=== PATIENT | male | born 1950 | race Caucasian/White ===

== ENCOUNTER 2018-05-30 05:19 | Inpatient (IN) ==
[2018-05-30] MEDS ORDERED: Chlorhexidine 4% Topical 120 APPLIC/120 ML Bottle TOPICAL SCH (05:45)
[2018-05-30] MEDS ORDERED: Chlorhexidine Gluconate 2% 1 Pack (2 Cloths) TOPICAL ONE (05:49)
[2018-05-30] MEDS ORDERED: Metoprolol Tartrate 25 MG Tablet PO ONE (05:49)
[2018-05-30] MEDS ORDERED: ceFAZolin 2 GM Premix Inj 2 GM/50 ML PIGGYBACK IV.SIG SCH (06:00)
[2018-05-30] MEDS ORDERED: Sodium Chlor 0.9% Inj 500 ML IV.SIG SCH (06:00)
[2018-05-30] MEDS ORDERED: Bupivacaine Liposomal PF 1.3% Inj 20 ML Vial ONE (06:28)
[2018-05-30] MEDS ORDERED: Lidocaine PF 1% Inj 5 ML Vial ONE (06:29)
[2018-05-30] MEDS ORDERED: Bupivacaine/Dextrose 0.75% Inj 2 ML Ampul ONE (06:36)
[2018-05-30] MEDS ORDERED: guaiFENesin 600 MG ER Tablet PO PRN (06:42)
[2018-05-30] MEDS ORDERED: CHLORPHENIRAMINE MALEATE 4 MG PO PRN (06:42)
[2018-05-30] MEDS ORDERED: Furosemide 40 MG Tablet PO PRN (06:42)
[2018-05-30] MEDS ORDERED: Propofol Inj 500 MG/50 ML Vial ONE (06:53)
[2018-05-30] MEDS ORDERED: Phenylephrine/NS 1000 MCG/10ML Syringe IV.PUSH ONE (06:53)
[2018-05-30] MEDS ORDERED: Sodium Chlor 0.9% Inj 80 ML, Bupivacaine Liposo PF 1.3% Inj 20 ML P-ARTICULR SCH ×2 (07:00)
[2018-05-30] MEDS ORDERED: SODIUM CHLOR 0.9% IV.SIG SCH ×2 (07:00→10:00)
[2018-05-30] MEDS ORDERED: TRANEXAMIC ACID IV.SIG SCH ×2 (07:00→10:00)
[2018-05-30] MEDS ORDERED: Non-Formulary Drug (Omega 3-Dha-Epa-Fish Oil [Fish Oil] 1,000 MG) PO SCH (09:00)
[2018-05-30] MEDS ORDERED: Acetaminophen 325 MG Tablet PO PRN (09:31)
[2018-05-30] MEDS ORDERED: Morphine Inj 4 MG/ML Vial IV.PUSH PRN (09:31)
[2018-05-30] MEDS ORDERED: Aluminum/Magnesium/Simethacone Susp 30 ML UDC PO PRN (09:31)
[2018-05-30] MEDS ORDERED: Tranexamic Acid Inj 0 MG in Sodium Chlor 0.9% Inj 100 ML IV.SIG ONE (09:31)
[2018-05-30] MEDS ORDERED: Bisacodyl 10 MG Supp RECTAL PRN (09:31)
[2018-05-30] MEDS ORDERED: Post-op Orders (for Pharmacy) OTHER STA (09:31)
--- NOTE | 2018-05-30 09:46 | P.OP ---
- Preoperative Diagnosis (1) Primary osteoarthritis of left knee - Postoperative Diagnosis (1) Primary osteoarthritis of left knee Date of procedure: 05/30/18 Procedure: Left total knee arthroplasty using [employer] Triathlon prosthesis (uncemented). Anesthesia: regional (Adductor canal block), local (Exparel), spinal Surgeon: Moisés Gibbs MD Neuro Urologist: ABDULLAHI Velazquez Estimated blood loss (mL): 100 Tourniquet time (min): 0 Pathology: none sent Operation and Findings: Indications and Findings: This 67-year-old man has had long-standing arthritis in his left knee for the past several years nonresponsive to conservative measures including anti-inflammatory agents, analgesics, activity modification, intra-articular corticosteroid injections and occasional ambulatory aids. His ambulation tolerance is limited to a great this degree. He has difficulty ascending and descending stairs and standing from a seated position. He has some rest pain. Physical findings showed some genu valgum with lateral laxity, lateral and patellofemoral crepitation, an antalgic gait and lateral and patellofemoral tenderness. Radiographic findings showed loss of articular cartilage to [id number] in the lateral compartment with osteophytes in the patellofemoral, lateral and medial compartments. There was lateral compartment subchondral sclerosis. Operative findings: There is severe lateral compartment arthritis with lateral compartment subchondral sclerosis in the femur and the tibia, erosion of the posterior aspect of the tibia, osteophytes throughout the knee and chondral irregularity in the patellofemoral and medial compartments as well.. The prosthesis used was a [place] Triathlon prosthesis. The femur was a size 5, cruciate retaining, uncemented. The tibial baseplate was a size 6 Tritanium with a cruciate retaining, X3 polyethylene, 11 mm spacer. The patella was a size 35 mm asymmetric, Tritanium backed. The patient was brought to the clean-air operating suite after administration of a regional anesthetic by adductor canal block. A spinal anesthetic was administered. The position was supine with a small bolster under the hip on the operative side. A pneumatic tourniquet was applied to the upper thigh. The lower extremity was prepped with alcohol, Hibiclens and ChloraPrep and draped in the usual manner with the knee draped free. An appropriate timeout procedure was carried out. An incision was made from about 3 fingerbreadths above the superior medial pole of patella down the tibial tubercle on the medial side. The incision was deepened through the subcutaneous tissue to the retinacular structures which were exposed medially and laterally. A medial retinacular incision was made from the superior medial pole of patella down the tibial tubercle and up into the quadriceps tendon, splitting it longitudinally in the medial one third. The patella was reflected. The infrapatellar fat pad was debulked. The anterior cruciate ligament was excised. Medial and lateral meniscectomies were initiated. Fenestrations were made in the distal femur and proximal tibia for intramedullary referencing guides. The distal femoral cutting guide and jig were assembled for a 5, 8 mm cut. When this was fit into position,the cutting block was stabilized with pins. The jig was removed. The distal femoral cut was completed with the oscillating saw. The sizing guide was positioned in place along Whitesides line and the epicondylar axis and stabilized with pins. The femoral size was determined as noted above. The 4-in-1 cutting block was positioned in place. Anterior and posterior cuts were made followed by posterior and anterior chamfer cuts taking care to prevent injury to ligamentous structures. Osteophytes were trimmed from the distal femur. A bone plug was placed into the fenestration of the distal femur. The proximal tibia was exposed. The medial and lateral meniscectomies were completed. The proximal tibial cutting guide was positioned in place and stabilized with a pin for rotation. The depth of cut was verified with a stylus off the high side. The cutting block was stabilized with pins. The jig was removed. The depth of cut was verified and adjusted appropriately with the use of the spacer block. The proximal tibial cut was made with the oscillating saw taking care to prevent injury to neurovascular and ligamentous structures. Proximal tibial bone was removed. Local anesthetic was administered with Exparel in the posterior capsule. The tibial baseplate trial was positioned in place. After verifying the appropriate size, the base plate trial was positioned in place along with its spacer. The femoral component was impacted into place. The alignment was checked. The tibial baseplate was pinned in place on the tibia. Attention was directed to the patella. The patella drill guide was positioned in place for the appropriate sized patella. Patellar drilling was then carried out. The trial patella was positioned in place. An initial range of motion was checked. A lateral retinacular release was carried out with electrocautery. The knee was taken through a range of motion which was easily 0 extension to 140 degrees. The patella trial was removed. The femoral drill holes were made. The femoral trials were removed. The tibial spacer was removed. A bone plug was placed into the proximal tibia. The tibial punch was impacted through the proximal tibial punch guide. This was all removed followed by placement of the tibial drill guide. The tibial drill holes were made. The guide was removed. The cut ends of bone were cleaned with pulse lavage. The tibial baseplate was impacted into place and seated appropriately. The spacer was inserted. The the femoral component was impacted into place and seated appropriately. The patella component was seated with the patellar vice and tightened appropriately. The knee was taken through a range of motion which was comparable to the previous range of motion with excellent stability in flexion and extension and appropriate patellofemoral tracking. The remainder of the Exparel was injected throughout the knee as a local anesthetic. Drains were brought out the superior lateral aspect of the suprapatellar pouch. Wound closure commenced using 0 Vicryl interrupted [id number] sutures for the capsular and fascial structures, 2-0 Vicryl interrupted simple sutures with buried knots for the subcutaneous tissues and 4-0 Monocryl, continuous subcuticular closure for the skin. The wound was dressed with Dermabond Prineo followed by a dry sterile dressing. Sterile soft roll with a cooling pad and Luis bandage from the base of the toes to mid thigh were applied. Patient was transferred from the operating room to the recovery room in satisfactory condition having tolerated procedure well. Counts were correct. Specimens: None. Estimated blood loss: 100 mL
--- NOTE | 2018-05-30 09:49 | P.DCO ---
- Physical Therapy Physical Therapy: Gait training Knee: Total knee, Protocol: Left, Gait training, Full weight bearing Left Lower Extremity Weight Bearing: Weight bearing as tolerated Left Lower Extremity Range of Motion: Active ROM (Active, active assisted, passive range of motion. The range of motion goal is 0 degrees extension to 135 degrees of flexion.) - Nursing Nursing: Dressing changes Dressing changes: Daily dressing change, Coverderm/Primapore Additional instructions: Do not remove Dermabond Prineo (the tape that is directly on the wound). Leave the Optifoam dressing in place for 7 days. After this, daily dressing changes will be done taking care to avoid injuring or removing the Dermabond Prineo. - Certification Need for Home Health services: I have seen patient Philippe Baeza on 05/30/18. My clinical findings support the need for the requested home health care services because: Need for Home Health Services: Limited ability to care for self, High risk of falls Homebound Certification: I certify that my clinical findings support that this patient is homebound because: Homebound Certification: Post-op weakness, Unsteady gait/balance, Unsafe to leave home unassisted
[2018-05-30] MEDS ORDERED: Ketorolac Inj 30 MG/ML (IVP) Vial ONE (10:21)
[2018-05-30] MEDS: Ketorolac Inj 30 MG/ML (IVP) Vial IV.PUSH SCH ×4 (10:22→21:30)
--- NOTE | 2018-05-30 11:16 | XR ---
EXAM DATE: 05/30/2018 11:06 AM EST AGE/SEX: 67 years / Male INDICATIONS: Post-op left knee. CLINICAL DATA: This is the patient's initial encounter. Patient reports that signs and symptoms have been present for 1 day and indicates a pain score of Nonresponsive. MEDICAL/SURGICAL HISTORY: Non-responsive. Non-responsive. [place] [facility] [place]1 [place] 2 [place] 03/03/2011. . FINDINGS: AP and lateral views of the knee following arthroplasty reveals a prosthesis in anatomic alignment. F racture is not appreciated. Surgical drain is evident . CONCLUSION: Status post total knee arthroplasty. Shaun Candelaria MD FACR Electronically signed by: Shaun Candelaria MD 05/30/2018 11:15 AM EST
[2018-05-30] MEDS: ceFAZolin 1 GM Premix Inj 1 GM/50 ML IV.SIG SCH ×2 (14:00→21:27)
[2018-05-30] MEDS ORDERED: Dextrose 50% in Water 50 ML Vial IV.PUSH PRN (15:53)
--- NOTE | 2018-05-30 15:59 | P.CON ---
History of Present Illness Service: [facility] Consult date: 05/30/18 Requesting Physician: Moisés Gibbs Reason for Consult: Medical Evaluation and Treatment Primary Care Provider: Gracie Ray DO Chief Complaint: osteoarthritis, left knee pain History of Present Illness: 67-year-old male with history of CHF s/p AICD, HTN, DM, neuropathy, COPD, nephrolithiasis, MELINA not on CPAP, and severe osteoarthritis that has failed multiple attempts at conservative management, now admitted to the hospital for left total knee arthroplasty by Dr. Gibbs. Hospitalist consulted for postop medical management. The patient is seen sitting upright in bedside chair post surgery. He states he is feeling great and his pain is well controlled especially after receiving dilaudid. He complains of a scratchy throat after intubation, however tolerating oral intake. He denies any chest pain, shortness of breath, or abdominal complaints. He has no other medical complaints at this time. His procedure analyst is Dr. Ortiz. Review of Systems All other systems reviewed negative except as stated in HPI REPLACED BY [facility] - History History Provided By: Patient - Medical History Medical History: Medical History (Last Reviewed 05/30/18 @ 15:40 by Farzana Benton) Arthritis CHF (congestive heart failure) COPD (chronic obstructive pulmonary disease) Diabetes Esophageal hiatal hernia Heart failure History of anesthesia reaction Hx of fracture of wrist Hx of renal calculi Hypertension Neuropathy Pacemaker Presence of orthopedic joint implant Sleep apnea Urinary retention Uvular swelling - Surgical History Surgical History: Surgical History (Last Reviewed 05/30/18 @ 15:41 by Farzana Benton) AICD (automatic cardioverter/defibrillator) present History of orchiectomy History of total left hip arthroplasty History of total right knee replacement (TKR) Hx of cholecystectomy Hx of right inguinal hernia repair Hx of shoulder surgery - Family History Family History: Family History (Last Updated 05/30/18 @ 15:41 by Farzana Benton) Mother Heart disease Father Heart disease - Social History I have reviewed the patient's Social History: Yes - Tobacco History Second Hand Smoke Exposure: Yes Tobacco Use In Past 30 Days: No Smoking Status: Never smoker - Alcohol History How Often Do You Have a Drink Containing Alcohol: Monthly or less - Substance Use History Substance History: No History of Abuse - Travel History Recent Travel in the [place] Within the Last 8 Weeks: No Recent Travel Out of the Country Within the Last 8 Weeks: No Medications and Allergies Active Medications: Active Medications Acetaminophen (Tylenol) 650 mg PO Q6H PRN PRN Reason: Pain Less Than 3 On Scale Al Hydrox/Mg Hydrox/Simethicone (Mag-Al Plus Susp Liq) 30 ml PO Q6H PRN PRN Reason: INDIGESTION Al Hydroxide/Mg Hydroxide (Milk Of Magnesia Liq) 30 ml PO BID PRN PRN Reason: Mild Constipation Albuterol (Ventolin Hfa Inh) 2 puff INH Q6H PRN PRN Reason: Shortness Of Breath Aspirin (Aspirin) 325 mg PO DAILY [facility] Bethanechol Chloride (Urecholine) 25 mg PO DAILY [facility] Bisacodyl (Dulcolax Supp) 10 mg RECTAL DAILY PRN PRN Reason: SEVERE CONSITIPATION Carvedilol (Coreg) 50 mg PO BID [facility] Chlorhexidine Gluconate (Hibiclens 4% Topical) 1 applicatio TOPICAL ONCE [facility] Stop: 06/03/18 05:44 Diphenhydramine HCl (Benadryl) 25 mg PO Q6H PRN PRN Reason: ITCHING Folic Acid (Folic Acid) 1 mg PO DAILY [facility] Glipizide (Glucotrol) 5 mg PO BID [facility] Guaifenesin (Mucinex Er) 600 mg PO Q12H PRN PRN Reason: CONGESTION Hydromorphone HCl (Dilaudid) 1 mg PO Q4H PRN PRN Reason: PAIN SCALE 6 TO 10 Last Admin: 05/30/18 13:51 Dose: 1 mg Cefazolin Sodium/Dextrose (Ancef 2 Gm Premix Inj) 2 gm in 50 mls @ 100 mls/hr IV.SIG GIMP TACKER [facility] Stop: 06/03/18 05:59 Last Infusion: 05/30/18 08:02 Dose: Infused Lactated Ringer's (Lr 1000 Ml Inj) 1,000 mls @ 30 mls/hr IV.SIG .Q24H [facility] Stop: 05/31/18 05:59 Last Admin: 05/30/18 06:22 Dose: 30 mls/hr Sodium Chloride (Ns Inj) 500 mls @ 30 mls/hr IV.SIG .Q10H [facility] Last Admin: 05/30/18 06:48 Dose: Not Given Lactated Ringer's (Lr 1000 Ml Inj) 1,000 mls @ 80 mls/hr IV.CONT .[id number] [facility] Last Admin: 05/30/18 10:14 Dose: 80 mls/hr Cefazolin Sodium/Dextrose (Ancef 1 Gm Premix Inj) 1 gm in 50 mls @ 100 mls/hr IV.SIG Q6H [facility] Stop: 05/31/18 02:29 Insulin Detemir (Levemir Inj) 22 unit SQ DAILY [facility] Ketorolac Tromethamine (Toradol Inj) 15 mg IV.PUSH Q6H [facility] Stop: 06/01/18 03:46 Last Admin: 05/30/18 10:31 Dose: 15 mg Lactulose (Lactulose Liq) 30 ml PO DAILY PRN PRN Reason: SEVERE CONSITIPATION Losartan Potassium (Cozaar) 25 mg PO BID [facility] Melatonin (Melatonin) 5 mg PO HS PRN PRN Reason: INSOMNIA Miscellaneous Information (Misc Nursing Information) 0 each OTHER UNSCH PRN PRN Reason: SEE LABEL COMMENTS Stop: 05/31/18 10:01 Montelukast Sodium (Singulair) 10 mg PO HS [facility] Morphine Sulfate (Morphine Inj) 2 mg IV.PUSH Q3H PRN PRN Reason: BREAKTHROUGH PAIN Ondansetron HCl (Zofran Odt) 4 mg PO Q6H PRN PRN Reason: NAUSEA OR VOMITING Pantoprazole Sodium (Protonix) 40 mg PO DAILY [facility] Pravastatin Sodium (Pravachol) 80 mg PO HS [facility] Senna/Docusate Sodium (Aurelia-Colace) 1 tab PO BID [facility] Sennosides (Senokot) 17.2 mg PO BID PRN PRN Reason: Moderate Constipation Sodium Chloride (Ns Flush) 2 ml IV.FLUSH BID [facility] Sodium Chloride (Ns Flush) 2 ml IV.FLUSH PRN PRN PRN Reason: FLUSH AFTER USING IV ACCESS Spironolactone (Aldactone) 25 mg PO DAILY [facility] Tamsulosin HCl (Flomax) 0.8 mg PO DAILY [facility] Tramadol HCl (Ultram) 50 mg PO Q6H PRN PRN Reason: PAIN SCALE 4 TO 6 MODERATE Vitamin E (Vitamin E) 400 unit PO DAILY [facility] Zolpidem Tartrate (Ambien) 5 mg PO HS PRN PRN Reason: INSOMNIA Allergies Allergy/AdvReac Type Severity Reaction Status Date / Time codeine Allergy Severe Rash Verified 05/30/18 05:54 erythromycin base Allergy Severe VOMITING Verified 05/30/18 05:54 oxycodone Allergy Severe Itching Verified 05/30/18 05:54 pentazocine Allergy Severe Itching Verified 05/30/18 05:54 Home Medications Medication Instructions Recorded Confirmed Type albuterol sulfate 2 puff INHALATION Q4-6H PRN 05/19/18 05/30/18 History bethanechol chloride 25 mg PO DAILY 05/19/18 05/30/18 History carvedilol 50 mg PO BID 05/19/18 05/30/18 History chlorpheniramine maleate 4 mg PO DAILY PRN 05/19/18 05/30/18 History folic acid 1 mg PO DAILY 05/19/18 05/30/18 History furosemide 40 mg PO DAILY PRN 05/19/18 05/30/18 History glipizide 5 mg PO BID 05/19/18 05/30/18 History guaifenesin [Mucinex] 600 mg PO Q12H PRN 05/19/18 05/30/18 History insulin glargine [Lantus U-100 22 unit SUBCUT DAILY 05/19/18 05/30/18 History Insulin] losartan 25 mg PO BID 05/19/18 05/30/18 History melatonin 3 mg PO HS PRN 05/19/18 05/30/18 History montelukast 10 mg PO QPM 05/19/18 05/30/18 History omega 1-isa-kfa-fish oil [Fish Oil] 1,000 mg PO DAILY 05/19/18 05/30/18 History omeprazole 40 mg PO DAILY 05/19/18 05/30/18 History simvastatin 40 mg PO QPM 05/19/18 05/30/18 History spironolactone 25 mg PO DAILY 05/19/18 05/30/18 History tamsulosin [Flomax] 0.8 mg PO DAILY 05/19/18 05/30/18 History vitamin E 400 unit PO DAILY 05/19/18 05/30/18 History aspirin 325 mg PO DAILY 05/30/18 05/30/18 History Physical Exam Vital signs: Vital Signs 05/30/18 06:03 05/30/18 10:00 05/30/18 10:15 Temperature 98.8 F 97.6 F Pulse Rate 84 83 80 Respiratory Rate 18 20 20 Blood Pressure 189/98 H 133/77 138/77 Pulse Oximetry 96 96 96 05/30/18 10:30 05/30/18 10:48 05/30/18 12:00 Temperature 97.6 F 97.4 F L Pulse Rate 80 81 77 Respiratory Rate 20 20 18 Blood Pressure 141/75 H 139/80 142/77 H Pulse Oximetry 96 95 96 Intake & Output 05/29/18 05/30/18 05/30/18 18:59 06:59 18:59 Intake Total 2099. / 2099. Output Total 100 / 100 Balance 1999. / Weight 120.4 kg Intake: IV 162.04 / 162.04 Cyklokapron Inj 1,204 MG In NS 112.04 / 112.04 Inj 100 ML @ 200 mls/hr IV.SIG ONCE [facility] Rx#:[id number] Ancef 2 GM Premix Inj 2 gm In 50 / 50 50 ml @ 100 mls/hr IV.SIG GIMP TACKER [facility] Rx#:[id number] Anesthesia Amount 1937 Output: Estimated Blood Loss 100 / 100 Other: Weight On Admission 120.4 kg Narrative: GENERAL: Well-nourished, well-developed very pleasant male patient in [facility]. SKIN: Warm and dry. No rash. HEENT: Normocephalic. Atraumatic. Pupils equal and round. Mucous membranes pink and moist. NECK: Supple. Trachea midline. CARDIOVASCULAR: Regular rate and rhythm. No murmur appreciated. RESPIRATORY: No accessory muscle use. Clear to auscultation. Breath sounds equal bilaterally. GASTROINTESTINAL: Abdomen soft, non-tender, nondistended. Normoactive bowel sounds x4. MUSCULOSKELETAL: No obvious deformities. Extremities without clubbing, cyanosis , or edema. LLE with surgical dressing from foot to proximal thigh, CDI, with hemovac in place. NEUROLOGICAL: Awake and alert. No obvious cranial nerve deficits. Motor grossly within normal limits. Moving all extremities spontaneously. Normal speech. PSYCHIATRIC: Appropriate mood and affect; insight and judgment normal. Results - Labs Labs: Laboratory Results - last 24 hr 05/30/18 05/30/18 05/30/18 06:01 06:05 08:32 POC Glucose 123 H 120 H Blood Type O Positive Blood Type Recheck Required Antibody Screen Negative 05/30/18 05/30/18 10:43 12:00 POC Glucose 141 H 166 H Blood Type Blood Type Recheck Antibody Screen - Imaging Impressions Knee X-Ray 05/30/18 06:41 CONCLUSION: Status post total knee arthroplasty. Shaun Candelaria MD FACR Assessment and Plan - Plan 67-year-old male with history of CHF s/p AICD, HTN, DM, neuropathy, COPD, nephrolithiasis, MELINA not on CPAP, and severe osteoarthritis that has failed multiple attempts at conservative management, now admitted to the hospital for left total knee arthroplasty by Dr. Gibbs. Hospitalist consulted for postop medical management. Severe Osteoarthritis s/p Left Total Knee Arthroplasty: surgery done 05/[address] Gibbs. -continue management per ortho -pain control with tramadol prn, dilaudid po prn and IV morphine prn breakthrough pain -PT consulted -plan for discharge with [facility] on 06/01 -check CBC/BMP in am HTN/HLD/CHF: chronic, does not appear to be in fluid overload -continue patient's aspirin, coreg, lasix, losartan, spironolactone, and statin -monitor BP, adjust antihypertensives as needed DM with neuropathy: chronic -continue patient's glipizide, lantus 22u sq qd (converted to levemir)\ -monitor Accu-checks and cover with SSI COPD: chronic, does not appear to be in exacerbation -continue patient's albuterol inhaler prn All other chronic medical conditions stable, continue home medications as appropriate. DVT Prophylaxis: per ortho; on full strength aspirin daily
[2018-05-30] MEDS: Insulin NovoLOG Aspart Correctional Sugar Inj SQ SCH ×2 (18:00→21:29)
[2018-05-30] MEDS ORDERED: Zolpidem Tartrate 5 MG Tablet PO PRN (21:00)
[2018-05-30] MEDS ORDERED: Montelukast 10 MG Tablet PO SCH (21:00)
[2018-05-30] MEDS ORDERED: Melatonin 5 MG Tablet PO PRN (21:00)
[2018-05-30] MEDS: Senna/Docusate Sodium 8.6/50 MG Tablet PO SCH (21:28)
[2018-05-30] MEDS: glipiZIDE 5 MG Tablet PO SCH (21:28)
[2018-05-30] MEDS: Carvedilol 12.5 MG Tablet PO SCH (21:29)
[2018-05-31] MEDS: ceFAZolin 1 GM Premix Inj 1 GM/50 ML IV.SIG SCH (01:15)
[2018-05-31] MEDS: Ketorolac Inj 30 MG/ML (IVP) Vial IV.PUSH SCH ×2 (03:10→09:45)
[2018-05-31 05:35] LABS: Baso % (Auto) 0.2 % (0.0-2.0); Eos % (Auto) 0.1 % (0.0-4.0); Hematocrit 36.7 % (39.0-51.0); Hemoglobin 12.4 gm/dL (13.0-17.0); Lymph # (Auto) 1.4 th/mm3 (1.0-4.8); Lymph % (Auto) 14.2 % (9.0-44.0); Mean Corpuscular HGB Conc 33.7 % (32.0-36.0); Mean Corpuscular Hemoglobin 30.6 pg (27.0-34.0); Mean Corpuscular Volume 90.8 fL (80.0-100.0); Mean Platelet Volume 8.1 fL (7.0-11.0); Mono # (Auto) 0.8 th/mm3 (0.0-0.9); Mono % (Auto) 7.8 % (0.0-8.0); Neut # (Auto) 7.8 th/mm3 (1.8-7.7); Neut % (Auto) 77.7 % (16.0-70.0); Platelet Count 207 th/mm3 (150-450); Red Blood Count 4.04 mil/mm3 (4.50-5.90); Red Cell Distribution Width 14.7 % (11.6-17.2)
[2018-05-31 06:10] LABS: Calcium 8.1 mg/dL (8.5-10.1); Carbon Dioxide 24.2 meq/L (21.0-32.0); Potassium 3.8 meq/L (3.5-5.1)
--- NOTE | 2018-05-31 07:14 | P.PNOP ---
Subjective Interval history: Postop day #1 He is doing well today. Other than some minor popliteal pain, he has no pain. He does have some itching from tramadol. Physical therapy reports that the ambulation distance was 210 feet, then 12 feet to the bathroom. The range of motion was 0 degrees of extension to 78 degrees of flexion. Physical Exam Vital signs: Vital Signs 05/30/18 10:00 05/30/18 10:15 05/30/18 10:30 Temperature 97.6 F Pulse Rate 83 80 80 Respiratory Rate 20 20 20 Blood Pressure 133/77 138/77 141/75 H Pulse Oximetry 96 96 96 05/30/18 10:48 05/30/18 12:00 05/30/18 16:00 Temperature 97.6 F 97.4 F L 98.4 F Pulse Rate 81 77 78 Respiratory Rate 20 18 18 Blood Pressure 139/80 142/77 H 141/92 H Pulse Oximetry 95 96 96 05/30/18 20:00 05/31/18 00:00 05/31/18 04:00 Temperature 98.0 F 97.2 F L 98.3 F Pulse Rate 85 81 71 Respiratory Rate 18 18 17 Blood Pressure 160/85 H 153/99 H 146/72 H Pulse Oximetry 93 L 96 94 L Intake & Output 05/30/18 05/31/18 05/31/18 18:59 06:59 18:59 Intake Total 3350.04 / 3350.04 1100 / 1100 Output Total 250 / 250 755 / 755 Balance 3100.04 / 3100.04 345 / 345 Weight 120.4 kg 138.1 kg Intake: IV 212.04 / 212.04 1100 / 1100 LR 1000 mL Inj 1,000 ML @ 80 1000 / 1000 mls/hr IV.CONT .[id number] MOISES Rx# :[id number] Cyklokapron Inj 1,204 MG In NS 112.04 / 112.04 Inj 100 ML @ 200 mls/hr IV.SIG ONCE MOISES Rx#:[id number] Ancef 1 GM Premix Inj 1 gm In 50 / 50 100 / 100 50 ml @ 100 mls/hr IV.SIG Q6H MOISES Rx#:[id number] Ancef 2 GM Premix Inj 2 gm In 50 / 50 50 ml @ 100 mls/hr IV.SIG WEAVER NEEDLE LOOM MOISES Rx#:[id number] Oral 1200 / 1200 Anesthesia Amount 1937 Output: Urine 575 / 575 Estimated Blood Loss 100 / 100 Wound Drainage 150 / 150 180 / 180 # 1 Left Knee 150 / 150 180 / 180 Other: # Voids 2 Date of Last Bowel Movement 05/30/18 05/30/18 # Bowel Movements 1 Narrative: He is resting comfortably, supine in bed. The dressing is dry and intact. His neurovascular status is intact. Results - Labs CBC & Chem 7: 05/31/18 04:34 05/31/18 04:34 Laboratory Results - last 24 hr 05/30/18 05/30/18 05/30/18 08:32 10:43 12:00 WBC RBC Hgb Hct MCV MCH MCHC RDW Plt Count MPV Neut % (Auto) Lymph % (Auto) [place] % (Auto) Eos % (Auto) Baso % (Auto) Neut # (Auto) Lymph # (Auto) [place] # (Auto) Eos # (Auto) Baso # (Auto) WBC Differential Differential Comment Sodium Potassium Chloride Carbon Dioxide Anion Gap BUN Creatinine Estimated GFR POC Glucose 120 H 141 H 166 H Random Glucose Calcium 05/30/18 05/30/18 05/31/18 17:27 21:17 04:34 WBC 10.0 RBC 4.04 L Hgb 12.4 L Hct 36.7 L MCV 90.8 MCH 30.6 MCHC 33.7 RDW 14.7 Plt Count 207 MPV 8.1 Neut % (Auto) 77.7 H Lymph % (Auto) 14.2 [place] % (Auto) 7.8 Eos % (Auto) 0.1 Baso % (Auto) 0.2 Neut # (Auto) 7.8 H Lymph # (Auto) 1.4 [place] # (Auto) 0.8 Eos # (Auto) 0.0 Baso # (Auto) 0.0 WBC Differential . Differential Comment Auto diff final Sodium Potassium Chloride Carbon Dioxide Anion Gap BUN Creatinine Estimated GFR POC Glucose 261 H 268 H Random Glucose Calcium 05/31/18 04:34 WBC RBC Hgb Hct MCV MCH MCHC RDW Plt Count MPV Neut % (Auto) Lymph % (Auto) [place] % (Auto) Eos % (Auto) Baso % (Auto) Neut # (Auto) Lymph # (Auto) [place] # (Auto) Eos # (Auto) Baso # (Auto) WBC Differential Differential Comment Sodium 141 Potassium 3.8 Chloride 107 Carbon Dioxide 24.2 Anion Gap 10 BUN 27 H Creatinine 1.14 Estimated GFR 64 L POC Glucose Random Glucose 141 H Calcium 8.1 L - Imaging Impressions Knee X-Ray 05/30/18 06:41 CONCLUSION: Status post total knee arthroplasty. Shaun Candelaria MD FACR - Procedures Left total knee arthroplasty using Gabriel Triathlon prosthesis (uncemented) on 05/30/2018. Assessment and Plan - Ortho Post Op Day # 1 - Problem List (1) Status post total left knee replacement not using cement Code(s): Z96.652 - Presence of left artificial knee joint Status: Acute - Assessment and Plan Condition: Good. Orthopedically stable. DVT prophylaxis: TEDs, aspirin, sequentials. Discharge plans: Home with home health care. An appointment was scheduled through the office. Prescriptions: Dilaudid 1 mg, for severe pain; Patient is having significant pain caused by a total knee replacement which will last more than 3 days. Trial of Tylenol has not helped. I believe that it is medically necessary to treat patients pain because it is affecting patients ability to participate in postoperative rehabilitation and perform activities of daily living in a comfortable and efficient manner. I have checked a [employer] database prior to completing the prescription.
--- NOTE | 2018-05-31 07:48 | P.DS ---
Date of admission: 05/30/18 06:41 Primary care physician: Gracie Ray DO Attending physician on discharge: Moisés Gibbs Anticipated date of discharge: 05/31/18 Brief History from admission: This 67-year-old man has had long-standing left knee pain from osteoarthritis in the knee. He has not responded to conservative measures including activity modification, ambulatory aids, attempts at weight loss, exercise and intra- articular corticosteroid injections. He was unable to take nonsteroidal anti- inflammatory agents because of medical conditions. Occasionally he would take some anti-inflammatory agents. His pain interrupted his activities of daily living causing him pain to enter and exit vehicles, ascend and descend stairs, any distance and similar activities. His ambulation tolerance was limited because of this. Physical findings showed genu valgum in the left knee, lateral laxity, lateral tenderness as well as patellofemoral tenderness, lateral and patellofemoral crepitation. He had an antalgic gait. Radiographic findings showed loss of articular cartilage to [id number] in the lateral compartment with tricompartmental osteophytes and lateral subchondral sclerosis. DS: Diagnosis - Discharge Diagnosis (1) Status post total left knee replacement not using cement Status: Acute Diagnosis: Principal (2) Primary osteoarthritis of left knee Status: Chronic Diagnosis: Principal (3) Diabetes mellitus Status: Acute Diagnosis: Secondary (4) Hypertension Status: Acute Diagnosis: Secondary DS: Medications - Discharge Medications Prescriptions: hydromorphone 1 mg PO Q4H PRN 7 Days #42 tab PRN Reason: Pain (Scale Score 7-10) DS: Summary Hospital Course: The patient was admitted as noted above. The above noted operative procedure was carried out that day. Preoperatively prophylactic antibiotics were administered Ancef according to protocol. These were continued postoperatively. The patient also received tranexamic acid to help with hemostasis according to protocol. In the postanesthesia care unit mechanical methods of DVT prophylaxis were initiated in the form of CHARLIE stockings and sequentials. Physical therapy was initiated on the day of surgery. On postoperative day #1 physical therapy continued. DVT prophylaxis with aspirin was initiated at this time. The patient continued physical therapy throughout the hospitalization. The distance walked and range of motion improved throughout the hospitalization. The patient was discharged on postoperative day 1 with the disposition being to home with home health care. An appointment for follow-up was made prior to admission. - Time Spent with Patient Total time spent providing and/or coordinating discharge services: Less than 30 minutes - Quality: VTE Deep Vein Thrombosis/Pulmonary Embolism Present on Admission: No Exam Vital signs: Vital Signs 05/30/18 10:00 05/30/18 10:15 05/30/18 10:30 Temperature 97.6 F Pulse Rate 83 80 80 Respiratory Rate 20 20 20 Blood Pressure 133/77 138/77 141/75 H Pulse Oximetry 96 96 96 05/30/18 10:48 05/30/18 12:00 05/30/18 16:00 Temperature 97.6 F 97.4 F L 98.4 F Pulse Rate 81 77 78 Respiratory Rate 20 18 18 Blood Pressure 139/80 142/77 H 141/92 H Pulse Oximetry 95 96 96 05/30/18 20:00 05/31/18 00:00 05/31/18 04:00 Temperature 98.0 F 97.2 F L 98.3 F Pulse Rate 85 81 71 Respiratory Rate 18 18 17 Blood Pressure 160/85 H 153/99 H 146/72 H Pulse Oximetry 93 L 96 94 L Intake & Output 05/30/18 05/31/18 05/31/18 18:59 06:59 18:59 Intake Total 3350.04 / 3350.04 1100 / 1100 Output Total 250 / 250 755 / 755 Balance 3100.04 / 3100.04 345 / 345 Weight 120.4 kg 138.1 kg Intake: IV 212.04 / 212.04 1100 / 1100 LR 1000 mL Inj 1,000 ML @ 80 1000 / 1000 mls/hr IV.CONT .[id number] MOISES Rx# :[id number] Cyklokapron Inj 1,204 MG In NS 112.04 / 112.04 Inj 100 ML @ 200 mls/hr IV.SIG ONCE MOISES Rx#:[id number] Ancef 1 GM Premix Inj 1 gm In 50 / 50 100 / 100 50 ml @ 100 mls/hr IV.SIG Q6H MOISES Rx#:[id number] Ancef 2 GM Premix Inj 2 gm In 50 / 50 50 ml @ 100 mls/hr IV.SIG FACING MACHINE OPERATOR MOISES Rx#:[id number] Oral 1200 / 1200 Anesthesia Amount 193 / 193 Output: Urine 575 / 575 Estimated Blood Loss 100 / 100 Wound Drainage 150 / 150 180 / 180 # 1 Left Knee 150 / 150 180 / 180 Other: # Voids 2 Date of Last Bowel Movement 05/30/18 05/30/18 # Bowel Movements 1 Narrative: He is resting comfortably, supine in bed. The dressing is dry and intact. His neurovascular status is intact. Results Procedures completed during hospitalization: Left total knee arthroplasty using Gabriel Triathlon prosthesis (uncemented) on 05/30/2018. Labs on day of discharge: Labs from last 24 hours 05/31/18 05/31/18 05/30/18 04:34 04:34 21:17 WBC 10.0 RBC 4.04 L Hgb 12.4 L Hct 36.7 L MCV 90.8 MCH 30.6 MCHC 33.7 RDW 14.7 Plt Count 207 MPV 8.1 Neut % (Auto) 77.7 H Lymph % (Auto) 14.2 [place] % (Auto) 7.8 Eos % (Auto) 0.1 Baso % (Auto) 0.2 Neut # (Auto) 7.8 H Lymph # (Auto) 1.4 [place] # (Auto) 0.8 Eos # (Auto) 0.0 Baso # (Auto) 0.0 WBC Differential . Differential Comment Auto diff final Sodium 141 Potassium 3.8 Chloride 107 Carbon Dioxide 24.2 Anion Gap 10 BUN 27 H Creatinine 1.14 Estimated GFR 64 L POC Glucose 268 H Random Glucose 141 H Calcium 8.1 L 05/30/18 05/30/18 05/30/18 17:27 12:00 10:43 WBC RBC Hgb Hct MCV MCH MCHC RDW Plt Count MPV Neut % (Auto) Lymph % (Auto) [place] % (Auto) Eos % (Auto) Baso % (Auto) Neut # (Auto) Lymph # (Auto) [place] # (Auto) Eos # (Auto) Baso # (Auto) WBC Differential Differential Comment Sodium Potassium Chloride Carbon Dioxide Anion Gap BUN Creatinine Estimated GFR POC Glucose 261 H 166 H 141 H Random Glucose Calcium 05/30/18 08:32 WBC RBC Hgb Hct MCV MCH MCHC RDW Plt Count MPV Neut % (Auto) Lymph % (Auto) [place] % (Auto) Eos % (Auto) Baso % (Auto) Neut # (Auto) Lymph # (Auto) [place] # (Auto) Eos # (Auto) Baso # (Auto) WBC Differential Differential Comment Sodium Potassium Chloride Carbon Dioxide Anion Gap BUN Creatinine Estimated GFR POC Glucose 120 H Random Glucose Calcium - Impressions ITS Impressions Knee X-Ray 05/30/18 06:41 CONCLUSION: Status post total knee arthroplasty. Shaun Candelaria MD FACR Discharge Plan - Discharge Disposition Patient Disposition: W/Home Health Service - Discharge Condition Condition: Stable - Discharge Order Discharge Orders: Discharge Order (Routine); Ordered 05/31/18 Ordered By: Moisés Gibbs - Discharge Details Anticipated Discharge Date: 05/31/18 - Physicians Team Primary Care Provider: Gracie Ray Attending Provider: Moisés Gibbs Other Providers: Anastacio Miles MD - Rxs /Orders / Referrals /Forms Prescriptions: New hydromorphone 2 mg Tablet 1 mg PO Q4H PRN (Reason: Pain (Scale Score 7-10)) 7 Days Qty: 42 RF: 0 Continue albuterol sulfate 90 mcg/actuation Hfa Aerosol Inhaler 2 puff INHALATION Q4-6H PRN (Reason: Shortness Of Breath) aspirin 325 mg Tablet 325 mg PO DAILY bethanechol chloride 25 mg Tablet 25 mg PO DAILY carvedilol 25 mg Tablet 50 mg PO BID chlorpheniramine maleate 4 mg Tablet 4 mg PO DAILY PRN (Reason: Congestion) folic acid 1 mg Tablet 1 mg PO DAILY furosemide 40 mg Tablet 40 mg PO DAILY PRN (Reason: Edema) glipizide 5 mg Tablet 10 mg PO BID guaifenesin [Mucinex] 600 mg Tablet Extended Release 12hr 600 mg PO Q12H PRN (Reason: Congestion) insulin glargine [Lantus U-100 Insulin] 100 unit/mL Solution 22 unit SUBCUT DAILY losartan 25 mg Tablet 25 mg PO BID melatonin 3 mg Tablet 3 mg PO HS PRN (Reason: Insomnia) montelukast 10 mg Tablet 10 mg PO QPM omega 6-weu-oog-fish oil [Fish Oil] 1,000 mg (120 mg-180 mg) Capsule 1,000 mg PO DAILY omeprazole 40 mg Capsule,Delayed Release(Dr/Ec) 40 mg PO DAILY simvastatin 40 mg Tablet 40 mg PO QPM spironolactone 25 mg Tablet 25 mg PO DAILY tamsulosin [Flomax] 0.4 mg Capsule 0.8 mg PO DAILY vitamin E 400 unit Capsule 400 unit PO DAILY Referrals: Moisés Gibbs MD [Physician] - See Instructions Gracie Ray DO [Primary Care Provider] - See Instructions - Discharge Instructions Patient Printed Instructions: Knee Replacement (DC)
[2018-05-31 08:42] VITALS: RESP 19; O2SAT 97
[2018-05-31] MEDS: Senna/Docusate Sodium 8.6/50 MG Tablet PO SCH (08:43)
[2018-05-31] MEDS: glipiZIDE 5 MG Tablet PO SCH (08:44)
[2018-05-31] MEDS: Carvedilol 12.5 MG Tablet PO SCH (08:44)
[2018-05-31] MEDS: Insulin NovoLOG Aspart Correctional Sugar Inj SQ SCH ×2 (08:48→12:33)
[2018-05-31] MEDS ORDERED: Insulin Detemir Inj 1,000 UNIT/10 ML Vial SQ SCH (09:00)
[2018-05-31] MEDS ORDERED: Spironolactone 25 MG Tablet PO SCH (09:00)
[2018-05-31] MEDS ORDERED: Folic Acid 1 MG Tablet PO SCH (09:00)
[2018-05-31] MEDS ORDERED: Aspirin 325 MG Tablet PO SCH (12:00)
[2018-05-31 13:13] VITALS: BP 152/87; PULSE 75; TEMP 97.8
== END 2018-05-31 15:00 | disposition home health service (06) ==
LOC: HSDC 05:19 → N06 06:41 → EDSTATUS 07:00
PROVIDERS: ADMIT Orthopaedic Surgery; ATTEND Orthopaedic Surgery